=== PATIENT | female | born 1990 | race Caucasian/White ===

== ENCOUNTER 2017-07-10 10:08 | Emergency (ER) | payer OTHER ==
[2017-07-10 10:14] VITALS: BP 116/57; PULSE 105; TEMP 99.9; BMI 25.0
[2017-07-10] MEDS ORDERED: KETOROLAC TROMETHAMINE 30 MG/1 ML VIAL IM ONE (11:42)
[2017-07-10] MEDS ORDERED: DEXAMETHASONE LIQUID 0.5 MG/5 ML 240 ML BULK BOTTLE PO ONE (11:43)
[2017-07-10] MEDS ORDERED: DEXAMETHASONE SOD PHOSPHATE 10 MG/1 ML VIAL ONE (11:48)
[2017-07-10] MEDS ORDERED: KETOROLAC TROMETHAMINE 30 MG/1 ML VIAL ONE (11:48)
--- NOTE | 2017-07-10 11:49 | PDOC ---
History of Present Illness - General Chief Complaint: Sore Throat Stated Complaint: SORE THROAT Time Seen by Provider: 07/10/17 11:18 History Source: Patient Exam Limitations: No Limitations - History of Present Illness Initial Comments: 07/10/17 11:40 This is a 26 yo woman with PMH asthma who presents today with 1 day of headache , chills, sore throat and body aches. She states she has been lethargic with generalized weakness. She states she is unable to swallow due to pain. She denies vomiting, diplopia, blurred vision, fevers, chest pain or shortness of breath. PMD- Capo Barragan Tob- 4 cigarettes daily ETOH- denies Illicits- denies Occupation- Agriculturist at [employer] Pain: P-throat and joints Q- soreness, achy R- no radiation S- 06/17 T- starting when waking up 07/09. Timing/Duration: reports: yesterday Severity: reports: mild Past History - Past Medical History Allergies/Adverse Reactions: Allergies Allergy/AdvReac Type Severity Reaction Status Date / Time No Known Allergies Allergy Verified 07/10/17 10:12 Home Medications: Ambulatory Orders Amoxicillin - [Amoxicillin 500mg Capsule -] 500 mg PO BID #20 capsule 07/10/17 Asthma: Yes Cancer: No Cardiac Disorders: No Diabetes: No HTN: No Seizures: No Thyroid Disease: No - Immunization History Immunization Up to Date: Yes - Psycho/Social/Smoking Cessation Hx Anxiety: No Suicidal Ideation: No Smoking History: Current every day smoker Have you smoked in the past 12 months: Yes Number of Cigarettes Smoked Daily: 4 Information on smoking cessation initiated: Yes 'Breaking Loose' booklet given: 07/10/17 Hx Alcohol Use: No Drug/Substance Use Hx: No Substance Use Type: None Hx Substance Use Treatment: No Review of Systems - Review of Systems Able to Perform ROS?: Yes Is the patient limited Wolof proficient: No Constitutional: Yes: See HPI HEENTM: Yes: See HPI Respiratory: No: Symptoms reported Cardiac (ROS): No: Symptoms Reported ABD/GI: Yes: Nausea : No: Symptoms Reported Musculoskeletal: Yes: Joint Pain Integumentary: No: Symptoms Reported Neurological: No: Symptoms reported *Physical Exam - Vital Signs Last Vital Signs Temp Pulse Resp BP Pulse Ox 99.9 F H 105 H 18 116/57 100 07/10/17 10:12 07/10/17 10:12 07/10/17 10:12 07/10/17 10:12 07/10/17 10:12 - Physical Exam General Appearance: Yes: Appropriately Dressed. No: Apparent Distress HEENT: positive: EOMI, BABITA, Muffled/Hoarse voice, Pharyngeal Erythema, Hearing Grossly Normal. negative: TM Erythema Neck: positive: Trachea midline, Lymphadenopathy (R) (anterior), Lymphadenopathy (L) (anterior). negative: Tender Respiratory/Chest: positive: Lungs Clear, Normal Breath Sounds. negative: Chest Tender, Respiratory Distress, Accessory Muscle Use Cardiovascular: positive: Regular Rhythm, Regular Rate, S1, S2. negative: Edema , JVD, Murmur Gastrointestinal/Abdominal: positive: Normal Bowel Sounds, Soft. negative: Tender, Organomegaly Musculoskeletal: positive: Normal Inspection. negative: CVA Tenderness Extremity: positive: Normal Capillary Refill, Normal Inspection, Normal Range of Motion Integumentary: positive: Normal Color, Dry, Warm Neurologic: positive: quality assurance coordinator II-XII NML intact, Fully Oriented, Alert, Normal Mood/ Affect, Normal Response, Motor Strength 5/5 Medical Decision Making - Medical Decision Making 07/10/17 11:49 A: This is a 26 yo woman with PMH asthma who presents today with 1 day of headache , chills, sore throat and body aches. She states she has been lethargic with generalized weakness. She states she is unable to swallow due to pain. She denies vomiting, diplopia, blurred vision, fevers, chest pain or shortness of breath. Erythema present in oropharynx. No tonsillar exudate. No cough. TM's WNL. Muffled voice. (-) trismus. Lungs CTAB. S1,S2 no m/r/g. Abd SNTND. CENTOR score-3. P: strep throat vs viral uri - will send rapid strep - Toradol 30mg IM now - Decadron 10mg PO now - reassess 07/10/17 12:27 (+) strep testing reported via phone to author. will prescribe amoxil 500mg bid x10 days *DC/Admit/Observation/Transfer Diagnosis at time of Disposition: Strep pharyngitis - Discharge Dispostion Disposition: HOME Condition at time of disposition: Stable Admit: No - Prescriptions Prescriptions: Amoxicillin - [Amoxicillin 500mg Capsule -] 500 mg PO BID #20 capsule - Referrals Referrals: Capo Barragan MD [Primary Care Provider] - - Patient Instructions Printed Discharge Instructions: DI for Strep Throat Additional Instructions: Take all Amoxil as prescribed. Finish ALL of the medication even if you feel better after a few doses. Throw away your toothbrush and use a new toothbrush after you finish the Amoxil. Take Motrin or Tylenol for fevers or pain as directed by physical laboratory assistant's instructions. Return to ER for worsening pain, inability to swallow, hoarse voice, or any other concerns. Thank you for choosing us to provide your emergent health care.
== END 2017-07-10 12:40 | disposition home or self-care (01) ==
LOC: JERFT 10:08
PROC: 3E0233Z Introduction of Anti-inflammatory into Muscle, Percutaneous Approach (ICD-10-PCS; principal; 2017-07-10)
DX: J02.0 Streptococcal pharyngitis (principal); B95.0 Streptococcus, group A, as the cause of diseases classified elsewhere
CPT/HCPCS: 87070; 87077; 87430; 99281-25